=== PATIENT | female | born 1960 | race Caucasian/White ===

== ENCOUNTER 2018-05-30 13:36 | Emergency (ER) | payer OTHER ==
[~2018-05-30 13:36] MED LIST: CILOXAN5 ML OPH; CIPRO500 M1 PO; GENTAMICIN SULF30 G1 OPH; VIGAMOX3 ML OPH
[2018-05-30 14:35] LABS: ABSOLUTE BASOPHIL COUNT 0 /CUMM (0.0-0.2); ABSOLUTE EOSINOPHIL COUNT 0.1 /CUMM (0.0-0.7); ABSOLUTE GRANULOCYTE CT 3.8 /CUMM (1.4-6.5); ABSOLUTE LYMPH COUNT 2.5 /CUMM (1.2-3.4); ABSOLUTE MONOCYTE COUNT 0.3 /CUMM (0.10-0.60); BASOPHIL % 0.7 % (0.0-2.0); EOSINOPHIL % 1.9 % (0-5); GRANULOCYTE % 55.8 % (42.2-75.2); HEMATOCRIT 40.6 % (37-47); MEAN CORPUSCULAR HGB 29.9 PG (27.0-31.0); MEAN CORPUSCULAR HGB CONC 34.9 G/DL (33.0-37.0); MEAN CORPUSCULAR VOLUME 85.7 FL (81.0-99.0); MEAN PLATELET VOLUME 8.7 FL (7.4-10.4); PLATELET COUNT 278 /CUMM (130-400); RBC DISTRIBUTION WIDTH 12.8 % (11.5-14.5); RED BLOOD CELL CT 4.74 /CUMM (4.20-5.40); WHITE BLOOD CELL COUNT 6.8 /CUMM (4.8-10.8)
--- NOTE | 2018-05-30 15:15 | ED GENERAL ADULT ---
History of Present Illness General Chief Complaint: General Adult Stated Complaint: GABRIELE LUISNESS Source: patient, family Exam Limitations: no limitations Vital Signs & Intake/Output Vital Signs & Intake/Output Vital Signs Date Time Temp Pulse Resp B/P B/P Pulse O2 O2 Flow FiO2 Mean Ox Delivery Rate 05/30 1543 98.8 74 18 120/71 99 05/30 1351 Room Air 05/30 1351 66 18 97/58 100 Room Air Allergies Coded Allergies: NO KNOWN ALLERGIES (05/30/18) Reconcile Medications Ciprofloxacin (Ciloxan) 0.3 % DROPS 1 GTT OPH TID conjunctivitis Ciprofloxacin HCl (Cipro) 500 MG TABLET 1 TAB PO BID CONJUNCTIVITIS Gentamicin Sulfate 0.1 % OINT...G. 1 SHANEL OPH BID PINK EYE apply to affected area(s) Moxifloxacin Hydrochloride (Vigamox) 0.5 % DROPS 1 GTT OPH TID CONJUNCTIVITIS Triage Note: PT BIBA AFTER A SYNCOPAL EPISOE. PT C/O PAPLATATIONS AND DIZZINESS PRIOR TO EPISODE. EMS REPORTS MULTIPLE EPISODES OF VOMITING. 4 MG ZOFRAN ADMINISTERED WARD CLERK. PT REPORTS RELEIF OF SYMPTOMS. Triage Nurses Notes Reviewed? yes HPI: 58-year-old female with no pertinent past medical history presents with ankle episode of syncope that occurred after throwing up. 2 episodes of nonbilious nonbloody vomiting which started this morning with mild left lower quadrant pain. Negative for constipation or obstipation. Patient has a history of migraine headaches had 2 headaches over the past week that resolved with Tylenol. Denies headache prior to nausea vomiting or the syncopal episode. Negative for weakness or difficulty speaking or facial asymmetry. Negative for diarrhea. Past History Travel History Traveled to [place] past 21 day No Medical History Any Pertinent Medical History? none Neurological: NONE EENT: NONE Cardiovascular: NONE Respiratory: NONE Gastrointestinal: NONE Hepatic: NONE Renal: NONE Musculoskeletal: sciatica Psychiatric: NONE Endocrine: NONE Blood Disorders: NONE Cancer(s): NONE ALUMINUM POLISHER/Reproductive: NONE Surgical History Surgical History: non-contributory Psychosocial History What is your primary language Divehi Tobacco Use: Never used Family History Hx Contributory? No Review of Systems Review of Systems Constitutional: Denies: chills, diaphoresis, fever, malaise, weakness. EENTM: Denies: blurred vision, double vision. Respiratory: Reports: no symptoms. Cardiovascular: Reports: palpitations, syncope. Denies: chest pain, edema, orthopena, peripheral edema. GI: Reports: abdominal pain, nausea, vomiting. Denies: bloating, constipation, diarrhea. Genitourinary: Reports: no symptoms. Musculoskeletal: Denies: back pain, joint pain, muscle stiffness, neck pain. Skin: Reports: no symptoms. Neurological/Psychological: Reports: headache. Denies: cognitive dysfunction, confusion, depressed, numbness, tremors. Physical Exam Physical Exam General Appearance: well developed/nourished, no apparent distress, alert, awake , comfortable Head: atraumatic, normal appearance Eyes: Bilateral: PERRL, EOMI, pale conjunctivae. Neck: normal inspection Respiratory: normal breath sounds, no respiratory distress Cardiovascular: No M/G/R. Gastrointestinal: soft, LLQ tenderness. Negative rebound. Skin: intact, normal color Core Measures ACS in differential dx? Yes CVA/TIA Diagnosis: No Sepsis Present: No Sepsis Focused Exam Completed? No Progress Differential Diagnoses I considered the following diagnoses in my evaluation of the patient: Syncope cardiogenic versus vasovagal. Abdominal pain. Plan of Care: Orders Procedure Date/time Status MISTAKE 05/30 1510 Active ED- NURSING MISC 05/30 1419 Active TROPONIN LEVEL 05/30 1412 Complete LDH (LACT ACID DEHYDROGENASE) 05/30 1412 Complete ETHANOL 05/30 1412 Complete COMPREHENSIVE METABOLIC PANEL 05/30 1412 Complete CBC WITHOUT DIFFERENTIAL 05/30 1412 Complete EKG 05/30 1412 Active Laboratory Tests 05/30/18 1417: Anion Gap 9, Estimated GFR > 60, BUN/Creatinine Ratio 16.3, Glucose 105 H, Calcium 9.8, Total Bilirubin 0.5, AST 23, ALT 26, Alkaline Phosphatase 52, Lactate Dehydrogenase 402, Troponin I < 0.01, Total Protein 6.4, Albumin 3.8, Globulin 2.6, Albumin/Globulin Ratio 1.5, CBC w Diff NO MAN DIFF REQ, RBC 4.74, MCV 85.7, MCH 29.9, MCHC 34.9, RDW 12.8, MPV 8.7, Gran % 55.8, Lymphocytes % 36.9, Monocytes % 4.7, Eosinophils % 1.9, Basophils % 0.7, Absolute Granulocytes 3.8, Absolute Lymphocytes 2.5, Absolute Monocytes 0.3, Absolute Eosinophils 0.1, Absolute Basophils 0, Serum Alcohol < 10.0 Initial ED EKG: normal axis, normal sinus rhythm, no ST T wave changes, No prior ECG for comparison. Comments: Spoke with patient regarding ultrasound findings of hepatic and renal cyst. Patient understands and agrees to follow-up with her primary care physician. Spoke with patient regarding follow-up with cardiology for syncopal episode. Return precautions given. Patient demonstrated understanding great care plan. Departure Departure Disposition: HOME OR SELF CARE Condition: Stable Clinical Impression Primary Impression: Syncope Qualifiers: Syncope type: vasovagal syncope Qualified Code: R55 - Syncope and collapse Secondary Impressions: Hepatic cyst Nausea & vomiting Qualifiers: Vomiting type: unspecified Vomiting Intractability: non-intractable Qualified Code: R11.2 - Nausea with vomiting, unspecified Referrals: Josh Calles MD For syncope. Alex EASTON,Chip Gutiérrez (PCP/Family) Departure Forms: Customer Survey General Discharge Information Critical Care Note Critical Care Note Critical Care Time: non-applicable
--- NOTE | 2018-05-30 15:55 | ULTRASOUND REPORT ---
EXAMINATION: US ABDOMEN COMPLETE CLINICAL INFORMATION: Vomiting and abdominal pain.. COMPARISON: None TECHNIQUE: Real-time imaging of the abdominal viscera. FINDINGS: PANCREAS: The visualized portions the pancreas is normal. The pancreatic tail is obscured by bowel gas. ABDOMINAL AORTA: The proximal segment is normal in caliber. INFERIOR VENA CAVA: Visualized portions are normal. LIVER: Liver has normal size, contour and echotexture. Several hepatic cysts were observed and three were selected by the medical technologist hematology for measurement, including a 1.1 cm simple cyst in the right hepatic lobe. A 1.5 x 1.6 x 2 cm cyst in the right hepatic lobe has a thin septation. There appears to be a peripheral septation within a 2.6 cm cyst of the right hepatic lobe, as well. No suspicious liver lesion or intrahepatic bile duct dilatation. GALLBLADDER: Normal. The gallbladder is physiologically distended without evidence of stones, sludge, polyps, wall thickening or pericholecystic fluid. COMMON BILE DUCT: Normal in caliber measuring up to 6-7 mm in diameter. RIGHT KIDNEY: Normal. No hydronephrosis. No renal calculi or focal parenchymal lesions. The kidney measures 10.1 cm in maximum dimension. LEFT KIDNEY: The left kidney measures 11 cm in length. It has normal cortical thickness and echotexture. No nephrolithiasis or hydronephrosis. There are several simple peripelvic cysts, largest measuring up to 1.2 cm. No suspicious renal lesion. SPLEEN: Normal. The spleen measures 11.4 cm in maximum dimension. FREE FLUID: None. IMPRESSION: - Gallbladder is unremarkable. No cholelithiasis or cholecystitis. - Incidentally noted are several hepatic cysts and left renal cysts.
[2018-05-30] MEDS ORDERED: CLONAZEPAM0.5 M2 PO (17:12)
[2018-05-30] MEDS ORDERED: NEURONTIN300 M1 PO (17:12)
[2018-05-30] MEDS ORDERED: LISINOPRIL-HCT1 EACH PO (17:13)
[2018-05-30] MEDS ORDERED: AMITRIPTYLINE H10 M2 PO (17:13)
[2018-05-30] MEDS ORDERED: LACTULOSE10 GM/153 PO (17:13)
[2018-05-30 17:23] VITALS: BP 151/88
== END 2018-05-30 17:28 ==
LOC: ERH 13:36
PROVIDERS: Emergency Medicine
DX: R55 Syncope and collapse (principal); R11.2 Nausea with vomiting, unspecified; K76.89 Other specified diseases of liver; R10.32 Left lower quadrant pain
CPT/HCPCS: 93005; 93010; 96360; 96361; G0480; J7040